=== PATIENT | female | born 1940 | race Caucasian/White ===

== ENCOUNTER 2024-03-05 08:11 | Emergency (ER) | payer MEDICARE ==
[~2024-03-05] VITALS: Ht 160 cm; Wt 79.4 kg
[2024-03-05 08:18] VITALS: O2SAT 98
[2024-03-05] MEDS ORDERED: HYDROCODONE/APAP 5-325MG TABLET ONE (08:47)
[2024-03-05] MEDS: HYDROCODONE/APAP 5-325MG TABLET PO ONE (08:48)
[2024-03-05] MEDS ORDERED: HYDR-4209 PO (09:52)
[2024-03-05] MEDS ORDERED: NABU-140 PO (09:52)
== END 2024-03-05 10:17 | disposition home or self-care (01) ==
LOC: ER 08:11
DX: S49.81XA Other specified injuries of right shoulder and upper arm, initial encounter (principal); Z79.899 Other long term (current) drug therapy; W19.XXXA Unspecified fall, initial encounter; Y93.89 Activity, other specified; Y92.89 Other specified places as the place of occurrence of the external cause; Y99.8 Other external cause status
CPT/HCPCS: 73030; A4606; A4663